=== PATIENT | female | born 1950 | race Caucasian/White ===

== ENCOUNTER 2023-05-27 13:16 | Day surgery (SDC) | payer MEDICARE ==
[~2023-05-27 13:16] MED LIST: Iopamidol-M 300 61% 15 ML VIAL ONE
[2023-05-27] MEDS ORDERED: Lidocaine 1% PF 5 ML VIAL ONE (13:39)
[2023-05-27] MEDS ORDERED: Sodium Bicarbonate 2.5 MEQ/5 ML VIAL ONE (13:40)
[2023-05-27 15:18] VITALS: BP 121/64; TEMP 98.2
== END 2023-05-27 15:45 | disposition home or self-care (01) ==
LOC: CSHRAD 13:16
PROVIDERS: ATTEND Neurological Surgery
PROC: B02BYZZ Computerized Tomography (CT Scan) of Spinal Cord using Other Contrast (ICD-10-PCS; principal; 2023-05-27)
DX: M48.062 Spinal stenosis, lumbar region with neurogenic claudication (principal); M47.26 Other spondylosis with radiculopathy, lumbar region; R29.6 Repeated falls; R26.89 Other abnormalities of gait and mobility
CPT/HCPCS: 62305; 72126; 72132; Q9967

== ENCOUNTER 2023-10-03 12:26 | Outpatient (CLI) | payer MEDICARE, OTHER | END 2023-10-03 12:27 | disposition home or self-care (01) | LOC: CSHRAD 12:26 | PROVIDERS: ATTEND Neurological Surgery | DX: M54.50 Low back pain, unspecified (principal); S24.101D Unspecified injury at T1 level of thoracic spinal cord, subsequent encounter; Z98.890 Other specified postprocedural states; M47.816 Spondylosis without myelopathy or radiculopathy, lumbar region; S22.080A Wedge compression fracture of T11-T12 vertebra, initial encounter for closed fracture; Z98.1 Arthrodesis status | CPT/HCPCS: 72070; 72100 ==

== ENCOUNTER 2023-11-19 13:40 | Outpatient (CLI) | payer MEDICARE | END 2023-11-19 13:41 | disposition home or self-care (01) | LOC: CSHRAD 13:40 | PROVIDERS: ATTEND Neurological Surgery | DX: M48.062 Spinal stenosis, lumbar region with neurogenic claudication (principal); Z98.890 Other specified postprocedural states; M47.815 Spondylosis without myelopathy or radiculopathy, thoracolumbar region; M48.54XD Collapsed vertebra, not elsewhere classified, thoracic region, subsequent encounter for fracture with routine healing | CPT/HCPCS: 72072; 72100 ==